=== PATIENT | male | born 1945 | race Caucasian/White ===

== ENCOUNTER 2018-05-14 11:50 | Inpatient (IN) | payer MEDICARE, OTHER ==
[~2018-05-14] VITALS: Ht 182.9 cm; Wt 117.6 kg
[~2018-05-14 11:50] MED LIST: AMIODARONE 50 MG/ML, 3ML ONE; ASPI-496 PO; ATOR20TA PO; ATOR20TA9 PO; CALCIUM CHLORIDE 10%, 10ML SYR ONE; CARV6.2512 PO; CARV6.252 PO; DIPH25CA61 PO; EPINEPHRINE SYRINGE 0.1 MG/ML, 10ML ONE; FOLIC ACID PO; GLIM1TAB2 PO; GLYBURIDE PO; LISI-167 PO; LOSA25TA6 PO; PANT40TA3 PO; SODIUM BICARBONATE 1 MEQ/ML, 50ML VIAL ONE
[2018-05-14] MEDS ORDERED: ETOMIDATE 20 MG/10 ML ONE (12:00)
[2018-05-14] MEDS ORDERED: VECURONIUM 10 MG ONE ×2 (12:00→12:20)
[2018-05-14] MEDS ORDERED: SUCCINYLCHOLINE 20 MG/ML, 10ML ONE (12:00)
[2018-05-14] MEDS ORDERED: AMIODARONE 50 MG/ML, 3ML ONE ×2 (12:00→14:30)
[2018-05-14] MEDS ORDERED: EPINEPHRINE SYRINGE 0.1 MG/ML, 10ML ONE ×2 (12:00→13:44)
[2018-05-14] MEDS ORDERED: PROPOFOL 10 MG/ML, 20ML ONE (12:00)
[2018-05-14] MEDS ORDERED: ATROPINE SYRINGE 0.1 MG/ML, 10ML ONE (12:00)
[2018-05-14 12:16] LABS: MEAN CORPUSCULAR HEMOGLOBIN 29.8 pg (27.5-34.5); MEAN CORPUSCULAR HGB CONC 33.1 g/dL (33.2-36.2); MEAN CORPUSCULAR VOLUME 90.2 fL (81-97); MEAN PLATELET VOLUME 9.3 fL (7.4-10.4); PLATELET COUNT 159 x10^3/uL (130-400); RED BLOOD COUNT 4.88 x10^6/uL (4.38-5.82); RED CELL DISTRIBUTION WIDTH 16.5 % (9.4-14.8)
[2018-05-14] MEDS ORDERED: FENTANYL PF 100 MCG/2ML ONE (12:20)
[2018-05-14] MEDS ORDERED: MIDAZOLAM 1 MG/ML, 2ML ONE (12:20)
[2018-05-14] MEDS ORDERED: BIVALIRUDIN 250 MG ONE (12:21)
[2018-05-14 12:22] LABS: INTERNATIONAL NORMALIZED RATIO 1.2 (0.93-1.1); PROTHROMBIN TIME 12.4 Seconds (9.6-11.5)
[2018-05-14 12:23] LABS: ALANINE AMINOTRANSFERASE 47 U/L (12-78); ALBUMIN 3.3 g/dL (3.4-5.0); ANION GAP 17 mmol/L (5-15); CALCIUM 8.3 mg/dL (8.5-10.1); CHLORIDE 112 mmol/L (98-107); CREATININE 1.28 mg/dL (0.7-1.3)
[2018-05-14 12:27] LABS: ALKALINE PHOSPHATASE 195 U/L (45-117); BILIRUBIN,TOTAL 1.1 mg/dL (0.2-1.0); TOTAL PROTEIN 7.3 g/dL (6.4-8.2)
[2018-05-14] MEDS ORDERED: PROPOFOL 10 MG/ML, 20ML IVP ONE (12:30)
[2018-05-14] MEDS ORDERED: ETOMIDATE 20 MG/10 ML IV ONE (12:30)
[2018-05-14] MEDS ORDERED: SODIUM BICARB 8.4%, 50ML SYRINGE IVPush ONE ×3 (12:30→20:30)
[2018-05-14] MEDS ORDERED: PLEASE ENTER HEIGHT AND WEIGHT MC SCH (12:30)
[2018-05-14] MEDS: AMIODARONE 900 MG in DEXTROSE 5% 482 ML IV PRN (12:30)
[2018-05-14] MEDS ORDERED: SUCCINYLCHOLINE 20 MG/ML, 10ML IVPush ONE (12:30)
[2018-05-14] MEDS ORDERED: CODE BLUE RESPONSE XX ONE ×2 (12:30→15:30)
[2018-05-14] MEDS ORDERED: VECURONIUM 10 MG IVPush ONE (12:30)
[2018-05-14] MEDS ORDERED: SODIUM BICARBONATE 1 MEQ/ML, 50ML VIAL ONE ×2 (13:06→20:07)
[2018-05-14 13:14] LABS: MD YES
[2018-05-14 13:20] LABS: BAND#(MANUAL) 0.71 x10^3/uL; BANDS%(MANUAL) 6 % (0-7); BASOS#(MANUAL) 0.12 x10^3/uL (0-0.1); BASOS% (MANUAL) 1 % (0-1); EOS#(MANUAL) 0.12 x10^3/uL (0.0-0.4); EOS% (MANUAL) 1 % (1-7); LYMPH#(MANUAL) 6.43 x10^3/uL (1-3.4); LYMPHS% (MANUAL) 54 % (22-44); METAMYELOCYTES# (MANUAL) 0.24 x10^3/uL (0-0); METAMYELOCYTES% (MANUAL) 2 % (0-1); MONOS% (MANUAL) 5 % (2-9); NRBC % (MANUAL) 1 % (0-1); SEG#(MANUAL) 3.69 x10^3/uL (1.8-6.8); SEGS% (MANUAL) 31 % (42-75)
[2018-05-14 13:22] LABS: ANISOCYTOSIS 1+
[2018-05-14 13:23] LABS: <PLATELET ESTIMATE> ADEQUATE; <PLT MORPHOLOGY> NORMAL PLT MORPH
[2018-05-14] MEDS ORDERED: PHENYLEPHRINE 10 MG/ML ONE (13:43)
[2018-05-14] MEDS ORDERED: AMIODARONE 50 MG/ML, 3ML IVPush ONE ×2 (14:20→15:20)
[2018-05-14] MEDS ORDERED: LORazepam 2 MG/ML, 1ML IVPush PRN (14:30)
[2018-05-14] MEDS ORDERED: SODIUM BICARB 8.4%,50ML SYR. 50 MEQ in SODIUM CHLORIDE 0.45% 1,000 ML IV SCH (14:30)
[2018-05-14] MEDS ORDERED: ONDANSETRON 2MG/ML, 2ML IVPush PRN (14:30)
[2018-05-14] MEDS ORDERED: POLYETHYLENE GLYCOL 17 GM PACKET PO PRN (14:30)
[2018-05-14] MEDS ORDERED: OXYcodone IR 5MG TABLET PO PRN (14:30)
[2018-05-14] MEDS ORDERED: ONDANSETRON ODT 4 MG PO PRN (14:30)
[2018-05-14] MEDS ORDERED: MAGNESIUM SULFATE 1 GM/2 ML ONE (14:30)
[2018-05-14] MEDS ORDERED: SODIUM BICARB 8.4%, 50ML SYRINGE ONE (14:30)
[2018-05-14] MEDS ORDERED: BISACODYL 10 MG SUPP PR PRN (14:30)
[2018-05-14] MEDS ORDERED: morphine SULFATE 10 MG/ML, 1ML IVPush PRN (14:30)
[2018-05-14] MEDS ORDERED: ACETAMINOPHEN 325 MG TABLET PO PRN (14:30)
[2018-05-14 14:52] LABS: CREATINE KINASE, TOTAL 439 U/L (39-308)
[2018-05-14 14:56] LABS: ALBUMIN 2.5 g/dL (3.4-5.0); ANION GAP 14 mmol/L (5-15); CALCIUM 7.4 mg/dL (8.5-10.1); CHLORIDE 108 mmol/L (98-107); CREATININE 1.49 mg/dL (0.7-1.3)
[2018-05-14 14:58] LABS: ALANINE AMINOTRANSFERASE 47 U/L (12-78); ALKALINE PHOSPHATASE 154 U/L (45-117); BILIRUBIN,TOTAL 0.9 mg/dL (0.2-1.0); TOTAL PROTEIN 5.7 g/dL (6.4-8.2)
[2018-05-14] MEDS ORDERED: POTASSIUM CHLORIDE 40 MEQ in SODIUM CHLORIDE 0.9% 100 ML IV ONE (15:00)
[2018-05-14] MEDS ORDERED: SODIUM BICARBONATE 8.4% 150 MEQ in DEXTROSE 5% 1,000 ML IV SCH ×2 (15:00→20:00)
[2018-05-14] MEDS ORDERED: NOREPINEPHRINE 1 MG/ML, 4ML ONE (15:38)
[2018-05-14] MEDS: NOREPINEPHRINE 4 MG in SODIUM CHLORIDE 0.9% 246 ML IV PRN ×2 (15:40→19:53)
[2018-05-14] MEDS ORDERED: HEPARIN 25,000 UNITS/500ML PMX 500 ML IV PRN (17:00)
[2018-05-14] MEDS ORDERED: HEPARIN 5,000 UNITS/ML, 1ML IV PRN (17:00)
[2018-05-14] MEDS ORDERED: HEPARIN 5,000 UNITS/ML, 1ML IV ONE (17:00)
[2018-05-14] MEDS ORDERED: SITA50TA PO (17:02)
[2018-05-14 17:24] LABS: MICROSCOPIC INDICATED
[2018-05-14] MEDS ORDERED: FENTANYL PF 2,500 MCG in SODIUM CHLORIDE 0.9% 200 ML IV PRN (17:30)
[2018-05-14 17:42] LABS: CULTURE INDICATED? YES
[2018-05-14] MEDS ORDERED: SODIUM PHOSPHATE 20 MMOL in SODIUM CHLORIDE 0.9% 250 ML IVPB PRN (19:47)
[2018-05-14] MEDS ORDERED: CALCIUM CHLORIDE 13.6 MEQ in DEXTROSE 5% 100 ML IVPB SCH (20:00)
[2018-05-14] MEDS ORDERED: ARTIFICIAL TEARS OINT 3.5 GM EACHEYE SCH (20:00)
[2018-05-14] MEDS ORDERED: MAGNESIUM SULFATE 1 GM in SODIUM CHLORIDE 0.9% 50 ML IVPB PRN (20:00)
[2018-05-14] MEDS: KSCALE TO 4.0 IV SCH (20:00)
[2018-05-14] MEDS ORDERED: VECURONIUM 10 MG IVPush PRN (20:00)
[2018-05-14] MEDS: VASOPRESSIN 100 UNIT in SODIUM CHLORIDE 0.9% 495 ML IV PRN (20:10)
[2018-05-14] MEDS ORDERED: CALCIUM CHLORIDE 13.6 MEQ in DEXTROSE 5% 100 ML IVPB PRN (20:30)
[2018-05-14 20:38] VITALS: BP 110/54
[2018-05-14] MEDS: REGULAR INSULIN 62.5 UNITS in SODIUM CHLORIDE 0.9% 249.375 ML IV PRN (20:52)
[2018-05-14] MEDS ORDERED: INSULIN REGULAR 100 UNITS/ML, 3ML VIAL IV ONE ×2 (21:00→21:30)
[2018-05-14] MEDS ORDERED: POTASSIUM CHLORIDE PMX 100 ML IV ONE (21:00)
[2018-05-14] MEDS: BUSPIRONE 10 MG TABLET NG SCH (21:15)
[2018-05-14] MEDS: FAMOTIDINE 20 MG/2 ML IVPush SCH (21:17)
[2018-05-14] MEDS: NOREPINEPHRINE 16 MG in SODIUM CHLORIDE 0.9% 234 ML IV PRN (22:22)
[2018-05-14] MEDS: MIDAZOLAM 1 MG/ML, 2ML IVPush PRN (23:18)
[2018-05-14] MEDS ORDERED: EPINEPHRINE 2 MG in SODIUM CHLORIDE 0.9% 248 ML IV PRN (23:30)
[2018-05-15] MEDS: MIDAZOLAM 1 MG/ML, 2ML IVPush PRN ×6 (00:14→19:42)
[2018-05-15] MEDS ORDERED: POTASSIUM CHLORIDE PMX 100 ML IV ONE ×6 (01:00→21:00)
[2018-05-15] MEDS: PHENYLEPHRINE 20 MG in SODIUM CHLORIDE 0.9% 248 ML IV PRN ×4 (01:05→15:59)
[2018-05-15] MEDS: PROPOFOL 100 ML IV PRN ×3 (03:20→16:58)
[2018-05-15] MEDS: AMIODARONE 900 MG in DEXTROSE 5% 482 ML IV PRN (03:22)
[2018-05-15 03:58] LABS: MEAN CORPUSCULAR HEMOGLOBIN 30.4 pg (27.5-34.5); MEAN CORPUSCULAR HGB CONC 33.8 g/dL (33.2-36.2); MEAN CORPUSCULAR VOLUME 89.9 fL (81-97); MEAN PLATELET VOLUME 8.8 fL (7.4-10.4); PLATELET COUNT 267 x10^3/uL (130-400); RED BLOOD COUNT 4.09 x10^6/uL (4.38-5.82)
[2018-05-15] MEDS: KSCALE TO 4.0 IV SCH ×6 (04:00→20:00)
[2018-05-15 04:02] LABS: ALANINE AMINOTRANSFERASE 87 U/L (12-78); ALBUMIN 2.5 g/dL (3.4-5.0); ANION GAP 18 mmol/L (5-15); CALCIUM 7.8 mg/dL (8.5-10.1); CHLORIDE 112 mmol/L (98-107); CREATININE 2.03 mg/dL (0.7-1.3)
[2018-05-15 04:06] LABS: ALKALINE PHOSPHATASE 152 U/L (45-117); BILIRUBIN,TOTAL 1.5 mg/dL (0.2-1.0); CHOL/HDL RATIO 2.8; CHOLESTEROL, TOTAL 68 mg/dL (140-239); HDL CHOL % 35 % (26-37); HDL CHOLESTEROL (DIRECT) 24 mg/dL (40-60); LDL CHOLESTEROL,CALCULATED 15 mg/dL (54-169); LDL/HDL RATIO 0.6 (0.5-3.0); TOTAL PROTEIN 5.5 g/dL (6.4-8.2); TRIGLYCERIDES 143 mg/dL (50-200); VLDL CHOLESTEROL 29 mg/dL (0-25)
[2018-05-15 04:23] LABS: MD YES
[2018-05-15 04:31] LABS: ANISOCYTOSIS 1+; BANDS%(MANUAL) 18 % (0-7); EOS#(MANUAL) 0.38 x10^3/uL (0.0-0.4); EOS% (MANUAL) 1 % (1-7); LYMPH#(MANUAL) 2.65 x10^3/uL (1-3.4); LYMPHS% (MANUAL) 7 % (22-44); MONOS#(MANUAL) 0.76 x10^3/uL (0.3-2.7); MONOS% (MANUAL) 2 % (2-9); SEG#(MANUAL) 27.22 x10^3/uL (1.8-6.8); SEGS% (MANUAL) 72 % (42-75)
[2018-05-15 04:32] LABS: <PLATELET ESTIMATE> ADEQUATE; POLYCHROMASIA 1+
[2018-05-15 04:33] LABS: LARGE PLATELETS 1+
[2018-05-15] MEDS: ARTIFICIAL TEARS OINT 3.5 GM EACHEYE SCH ×3 (04:41→19:41)
[2018-05-15] MEDS: BUSPIRONE 10 MG TABLET NG SCH ×3 (04:41→19:42)
[2018-05-15] MEDS ORDERED: ASPIRIN 325 MG TABLET EC PO SCH (06:00)
[2018-05-15] MEDS ORDERED: PIPERACILLIN/TAZO/PMX 3.375GM 50 ML IV SCH (06:00)
[2018-05-15] MEDS ORDERED: ASPIRIN 325 MG TABLET PO SCH (06:28)
[2018-05-15] MEDS: REGULAR INSULIN 62.5 UNITS in SODIUM CHLORIDE 0.9% 249.375 ML IV PRN ×3 (06:34→14:37)
[2018-05-15] MEDS: SODIUM BICARBONATE 8.4% 150 MEQ in DEXTROSE 5% 1,000 ML IV SCH ×2 (06:34→18:11)
[2018-05-15] MEDS: NOREPINEPHRINE 16 MG in SODIUM CHLORIDE 0.9% 234 ML IV PRN ×2 (06:35→14:36)
[2018-05-15] MEDS: PIPERACILLIN/TAZO/PMX 3.375GM 50 ML IV SCH ×3 (06:47→19:09)
[2018-05-15] MEDS: FAMOTIDINE 20 MG/2 ML IVPush SCH ×2 (09:26→20:16)
[2018-05-15] MEDS: SENNA/DOCUSATE TABLET PO SCH (09:26)
[2018-05-15] MEDS ORDERED: REGULAR INSULIN 125 UNITS in SODIUM CHLORIDE 0.9% 248.75 ML IV PRN (17:30)
[2018-05-15] MEDS: PHENYLEPHRINE 40 MG in SODIUM CHLORIDE 0.9% 246 ML IV PRN (19:48)
[2018-05-15] MEDS ORDERED: SODIUM CHLORIDE 0.9% 1,000ML IVBOLUS ONE (23:00)
[2018-05-16] MEDS: NOREPINEPHRINE 16 MG in SODIUM CHLORIDE 0.9% 234 ML IV PRN ×3 (00:42→20:34)
[2018-05-16] MEDS: PIPERACILLIN/TAZO/PMX 3.375GM 50 ML IV SCH ×2 (00:56→07:38)
[2018-05-16] MEDS ORDERED: POTASSIUM CHLORIDE PMX 100 ML IV ONE ×2 (01:00→04:30)
[2018-05-16 03:36] LABS: MEAN CORPUSCULAR HEMOGLOBIN 30.4 pg (27.5-34.5); MEAN CORPUSCULAR HGB CONC 33.9 g/dL (33.2-36.2); MEAN CORPUSCULAR VOLUME 89.7 fL (81-97); MEAN PLATELET VOLUME 9.3 fL (7.4-10.4); PLATELET COUNT 196 x10^3/uL (130-400); RED BLOOD COUNT 3.66 x10^6/uL (4.38-5.82); RED CELL DISTRIBUTION WIDTH 16.5 % (9.4-14.8)
[2018-05-16] MEDS: BUSPIRONE 10 MG TABLET NG SCH ×2 (03:39→12:00)
[2018-05-16] MEDS: ARTIFICIAL TEARS OINT 3.5 GM EACHEYE SCH ×2 (03:39→12:00)
[2018-05-16] MEDS: KSCALE TO 4.0 IV SCH ×3 (03:39→08:00)
[2018-05-16 03:47] LABS: MD YES
[2018-05-16 03:48] LABS: ALBUMIN 2.3 g/dL (3.4-5.0); ANION GAP 11 mmol/L (5-15); CALCIUM 6.7 mg/dL (8.5-10.1); CHLORIDE 110 mmol/L (98-107)
[2018-05-16 03:49] LABS: BAND#(MANUAL) 3.38 x10^3/uL; BANDS%(MANUAL) 13 % (0-7); LYMPH#(MANUAL) 2.08 x10^3/uL (1-3.4); LYMPHS% (MANUAL) 8 % (22-44); MONOS#(MANUAL) 0.78 x10^3/uL (0.3-2.7); MONOS% (MANUAL) 3 % (2-9); SEG#(MANUAL) 19.76 x10^3/uL (1.8-6.8); SEGS% (MANUAL) 76 % (42-75)
[2018-05-16 03:50] LABS: <PLATELET ESTIMATE> ADEQUATE; ANISOCYTOSIS 1+; LARGE PLATELETS 1+; POLYCHROMASIA 1+
[2018-05-16 03:52] LABS: ALANINE AMINOTRANSFERASE 253 U/L (12-78); ALKALINE PHOSPHATASE 128 U/L (45-117); BILIRUBIN,TOTAL 1.7 mg/dL (0.2-1.0); CREATININE 2.47 mg/dL (0.7-1.3)
[2018-05-16] MEDS: VASOPRESSIN 100 UNIT in SODIUM CHLORIDE 0.9% 495 ML IV PRN (04:05)
[2018-05-16] MEDS: FENTANYL PF 2,500 MCG in SODIUM CHLORIDE 0.9% 200 ML IV PRN (04:05)
[2018-05-16] MEDS: PHENYLEPHRINE 40 MG in SODIUM CHLORIDE 0.9% 246 ML IV PRN (04:06)
[2018-05-16] MEDS: AMIODARONE 900 MG in DEXTROSE 5% 482 ML IV PRN (04:07)
[2018-05-16] MEDS: PROPOFOL 100 ML IV PRN ×2 (04:07→17:53)
[2018-05-16] MEDS: SODIUM BICARBONATE 8.4% 150 MEQ in DEXTROSE 5% 1,000 ML IV SCH (05:12)
[2018-05-16] MEDS: ASPIRIN 81 MG TABLET CHEW NG SCH (06:26)
[2018-05-16] MEDS: SENNA/DOCUSATE TABLET PO SCH (09:00)
[2018-05-16] MEDS ORDERED: DEXTROSE 50%, 50ML SYRINGE ONE ×2 (10:09→17:22)
[2018-05-16] MEDS: MIDAZOLAM 1 MG/ML, 2ML IVPush PRN ×2 (10:28→14:35)
[2018-05-16] MEDS ORDERED: DEXTROSE 50%, 50ML SYRINGE IVPush ONE ×2 (10:30→17:30)
[2018-05-16] MEDS ORDERED: CEFTRIAXONE 1,000 MG in SODIUM CHLORIDE 0.9% 50 ML IV SCH (12:30)
[2018-05-16] MEDS ORDERED: INSULIN LISPRO 100 UNITS/ML, PEN SQ-INSULIN SCH (12:30)
[2018-05-16] MEDS ORDERED: PIPERACILLIN/TAZO/PMX 2.25GM 50 ML IV SCH (14:00)
[2018-05-16] MEDS ORDERED: PIPERACILLIN/TAZO 2.25 GM in SODIUM CHLORIDE 0.9% 50 ML IV SCH (14:30)
[2018-05-16] MEDS: PIPERACILLIN/TAZO/PMX 2.25GM 50 ML IV SCH ×2 (14:36→20:38)
[2018-05-16] MEDS: INSULIN LISPRO 100 UNITS/ML, PEN SQ-INSULIN SCH ×2 (17:00→23:00)
[2018-05-16] MEDS: FAMOTIDINE 20 MG/2 ML IVPush SCH (21:17)
[2018-05-17] MEDS: PIPERACILLIN/TAZO/PMX 2.25GM 50 ML IV SCH ×3 (02:16→15:36)
[2018-05-17 04:57] LABS: ALANINE AMINOTRANSFERASE 314 U/L (12-78); ALBUMIN 2.2 g/dL (3.4-5.0); ANION GAP 21 mmol/L (5-15); CHLORIDE 106 mmol/L (98-107); CREATININE 4.13 mg/dL (0.7-1.3)
[2018-05-17 05:00] LABS: ALKALINE PHOSPHATASE 165 U/L (45-117); BILIRUBIN,TOTAL 2.3 mg/dL (0.2-1.0); TOTAL PROTEIN 5.6 g/dL (6.4-8.2)
[2018-05-17] MEDS: INSULIN LISPRO 100 UNITS/ML, PEN SQ-INSULIN SCH ×3 (05:00→17:00)
[2018-05-17 05:05] LABS: CALCIUM 6.3 mg/dL (8.5-10.1)
[2018-05-17] MEDS ORDERED: FILTER 0.22 MICRON IV PRN (06:00)
[2018-05-17 06:17] LABS: MEAN CORPUSCULAR HEMOGLOBIN 30.2 pg (27.5-34.5); MEAN CORPUSCULAR HGB CONC 33.8 g/dL (33.2-36.2); MEAN CORPUSCULAR VOLUME 89.3 fL (81-97); MEAN PLATELET VOLUME 10.1 fL (7.4-10.4); PLATELET COUNT 163 x10^3/uL (130-400); RED BLOOD COUNT 3.37 x10^6/uL (4.38-5.82); RED CELL DISTRIBUTION WIDTH 17.5 % (9.4-14.8)
[2018-05-17] MEDS: ASPIRIN 81 MG TABLET CHEW NG SCH (06:17)
[2018-05-17] MEDS: FENTANYL PF 2,500 MCG in SODIUM CHLORIDE 0.9% 200 ML IV PRN (06:22)
[2018-05-17] MEDS: PROPOFOL 100 ML IV PRN (06:22)
[2018-05-17 06:23] LABS: MD YES
[2018-05-17 06:25] LABS: BAND#(MANUAL) 6.11 x10^3/uL; BANDS%(MANUAL) 26 % (0-7); LYMPH#(MANUAL) 2.12 x10^3/uL (1-3.4); LYMPHS% (MANUAL) 9 % (22-44); METAMYELOCYTES# (MANUAL) 0.71 x10^3/uL (0-0); METAMYELOCYTES% (MANUAL) 3 % (0-1); MONOS#(MANUAL) 0.24 x10^3/uL (0.3-2.7); MONOS% (MANUAL) 1 % (2-9); SEG#(MANUAL) 14.34 x10^3/uL (1.8-6.8); SEGS% (MANUAL) 61 % (42-75)
[2018-05-17 06:26] LABS: <PLATELET ESTIMATE> ADEQUATE; ANISOCYTOSIS 1+; POLYCHROMASIA 1+
[2018-05-17 06:27] LABS: LARGE PLATELETS 1+; TOXIC GRAN 1+
[2018-05-17] MEDS: NOREPINEPHRINE 16 MG in SODIUM CHLORIDE 0.9% 234 ML IV PRN (06:47)
[2018-05-17] MEDS ORDERED: DOPAMINE/D5W PMX 250 ML IV ONE (08:00)
[2018-05-17] MEDS: SENNA/DOCUSATE TABLET PO SCH (08:24)
[2018-05-17] MEDS ORDERED: SODIUM BICARBONATE 8.4% 150 MEQ in DEXTROSE 5% 1,000 ML IV SCH (08:30)
[2018-05-17] MEDS: AMIODARONE 900 MG in DEXTROSE 5% 482 ML IV PRN (11:08)
[2018-05-17] MEDS ORDERED: PHENYLEPHRINE 20 MG in SODIUM CHLORIDE 0.9% 248 ML IV PRN (16:00)
[2018-05-17] MEDS ORDERED: EPINEPHRINE 2 MG in SODIUM CHLORIDE 0.9% 248 ML IV PRN (16:00)
== END 2018-05-17 16:33 | disposition expired | DRG 853 ==
LOC: ED 11:52 → CCU 13:47
PROVIDERS: ADMIT Internal Medicine; ATTEND Internal Medicine
PROC: 5A1935Z Respiratory Ventilation, Less than 24 Consecutive Hours (ICD-10-PCS; principal; 2018-05-14)
PROC: 02703ZZ Dilation of Coronary Artery, One Artery, Percutaneous Approach (ICD-10-PCS; 2018-05-14)
PROC: 0BH17EZ Insertion of Endotracheal Airway into Trachea, Via Natural or Artificial Opening (ICD-10-PCS; 2018-05-14)
PROC: 0T9B70Z Drainage of Bladder with Drainage Device, Via Natural or Artificial Opening (ICD-10-PCS; 2018-05-14)
PROC: 06HY33Z Insertion of Infusion Device into Lower Vein, Percutaneous Approach (ICD-10-PCS; 2018-05-14)
PROC: B54CZZA Ultrasonography of Left Lower Extremity Veins, Guidance (ICD-10-PCS; 2018-05-14)
PROC: 4A023N7 Measurement of Cardiac Sampling and Pressure, Left Heart, Percutaneous Approach (ICD-10-PCS; 2018-05-14)
PROC: B2111ZZ Fluoroscopy of Multiple Coronary Arteries using Low Osmolar Contrast (ICD-10-PCS; 2018-05-14)
PROC: B2151ZZ Fluoroscopy of Left Heart using Low Osmolar Contrast (ICD-10-PCS; 2018-05-14)
PROC: 04HY32Z Insertion of Monitoring Device into Lower Artery, Percutaneous Approach (ICD-10-PCS; 2018-05-14)
PROC: 4A133B1 Monitoring of Arterial Pressure, Peripheral, Percutaneous Approach (ICD-10-PCS; 2018-05-14)
PROC: 4A133J1 Monitoring of Arterial Pulse, Peripheral, Percutaneous Approach (ICD-10-PCS; 2018-05-14)
PROC: 5A1935Z Respiratory Ventilation, Less than 24 Consecutive Hours (ICD-10-PCS; 2018-05-16)
PROC: 5A12012 Performance of Cardiac Output, Single, Manual (ICD-10-PCS; 2018-05-16)
DX: A41.9 Sepsis, unspecified organism (principal); G93.41 Metabolic encephalopathy; J96.01 Acute respiratory failure with hypoxia; N17.0 Acute kidney failure with tubular necrosis; I21.4 Non-ST elevation (NSTEMI) myocardial infarction; I50.23 Acute on chronic systolic (congestive) heart failure; K72.00 Acute and subacute hepatic failure without coma; J18.9 Pneumonia, unspecified organism; N39.0 Urinary tract infection, site not specified; I42.9 Cardiomyopathy, unspecified; E87.4 Mixed disorder of acid-base balance; G93.1 Anoxic brain damage, not elsewhere classified; Z99.11 Dependence on respirator [ventilator] status; I49.01 Ventricular fibrillation; R57.0 Cardiogenic shock; D50.9 Iron deficiency anemia, unspecified; E11.9 Type 2 diabetes mellitus without complications; E66.9 Obesity, unspecified; Z68.35 Body mass index [BMI] 35.0-35.9, adult; E83.51 Hypocalcemia; E87.5 Hyperkalemia; E87.6 Hypokalemia; I11.0 Hypertensive heart disease with heart failure; I25.10 Atherosclerotic heart disease of native coronary artery without angina pectoris; I08.3 Combined rheumatic disorders of mitral, aortic and tricuspid valves; I45.10 Unspecified right bundle-branch block; K22.70 Barrett's esophagus without dysplasia; K57.90 Diverticulosis of intestine, part unspecified, without perforation or abscess without bleeding; Z66 Do not resuscitate; K74.60 Unspecified cirrhosis of liver; Z82.3 Family history of stroke; Z82.41 Family history of sudden cardiac death; Z82.49 Family history of ischemic heart disease and other diseases of the circulatory system; Z98.61 Coronary angioplasty status; Z87.891 Personal history of nicotine dependence; Z90.49 Acquired absence of other specified parts of digestive tract; Z88.8 Allergy status to other drugs, medicaments and biological substances; Z79.899 Other long term (current) drug therapy
CPT/HCPCS: 36415; 36600; 71045; 80053; 80061; 81001; 82330; 82550; 82553; 82803; 82947; 82962; 83605; 83735; 83880; 84100; 84132; 84443; 84484; 85025; 85520; 85610; 85730; 87070; 87081; 87086; 87205; 92920; 92950; 93005; 93306; 93458; 94002; 94003; 99156; 99157; C1894; G0378; J0461; J0583; J0696; J1265; J1815; J2250; J2543; J2704; J3010; J3475; J3480; J7070; 92928; C1725; C1769; C1887; J0171; J0282; J0330; J2370; J7030; J7040; J7050; J7060; Q9967; S0028